=== PATIENT | male | born 1945 | race Caucasian/White ===

== ENCOUNTER → 2017-01-22 | Outpatient (CLI) | payer MEDICARE, OTHER ==
[2017-01-22 08:51] LABS: CH 31.5; CHCM 33.1; HCT 43.9 % (39.0-53.0); HDW 2.45; HGB 14.4 gm/dL (13.0-17.5); MCH 31.4 pg (25.0-35.0); MCHC 32.9 g/dL (31.0-37.0); MCV 95.4 fL (80.0-100.0); Mean Platelet Volume 6.7; RDW 13.2 % (11.5-15.5); WBC 6.4 k/uL (3.8-10.6)
[2017-01-22 09:09] LABS: ALT 46 U/L (21-72); AST 31 U/L (17-59); Alkaline Phosphatase 68 U/L (38-126); Anion Gap 11 mmol/L; Blood Urea Nitrogen 14 mg/dL (9-20); Calcium 9.8 mg/dL (8.4-10.2); Carbon Dioxide 27 mmol/L (22-30); Chloride 104 mmol/L (98-107); Cholesterol 139 mg/dL (<200); Glucose 150 mg/dL (74-99); HDL Cholesterol 34 mg/dL (40-60); Non-African American GFR(MDRD) >60 (>60 ml/min/1.73 sqM); Potassium 4.4 mmol/L (3.5-5.1); Sodium 142 mmol/L (137-145); Total Protein 7.6 g/dL (6.3-8.2); Triglycerides 179 mg/dL (<150)
--- NOTE | 2017-01-22 10:01 | XR ---
EXAMINATION TYPE: XR chest 2V DATE OF EXAM: 01/22/2017 8:38 AM COMPARISON: Prior chest x-ray 17 January 2016 HISTORY: Physical, asbestos exposure TECHNIQUE: Frontal and lateral views of the chest are obtained. FINDINGS: Patient is post median sternotomy. Pleural calcifications are again noted. Blunting of the right costophrenic angle is chronic. Cardiac mediastinal silhouette, pulmonary vascularity and bob are stable. No evident pneumothorax. No focal pneumonia. Prominent lung volumes suggest underlying CO PD. IMPRESSION: Stable exam. Chronic changes, asbestos related disease, postop change, correlate for emp hysema.
[2017-01-22 10:58] LABS: Hemoglobin A1C 6.9 % (4.2-6.1)
== END ==
LOC: LABWHC1 08:12
PROVIDERS: ATTEND Internal Medicine
DX: Z00.00 Encounter for general adult medical examination without abnormal findings (principal); I11.9 Hypertensive heart disease without heart failure; E78.2 Mixed hyperlipidemia; E11.9 Type 2 diabetes mellitus without complications; Z98.890 Other specified postprocedural states
CPT/HCPCS: 36415; 71020; 80053; 80061; 82043; 83036; 84439; 84443; 85027

== ENCOUNTER → 2017-10-18 | Outpatient (CLI) | payer MEDICARE, OTHER ==
[2017-10-18 10:27] LABS: HCT 43.4 % (39.0-53.0); HGB 14.5 gm/dL (13.0-17.5); MCH 31.2 pg (25.0-35.0); MCHC 33.4 g/dL (31.0-37.0); MCV 93.7 fL (80.0-100.0); Mean Platelet Volume 7.2; Platelet Count 213 k/uL (150-450); RBC 4.64 m/uL (4.30-5.90); RDW 13.5 % (11.5-15.5); WBC 5.9 k/uL (3.8-10.6)
[2017-10-18 10:29] LABS: Appearance,Urine Clear (Clear); Bilirubin,Urine Negative (Negative); Blood,Urine Negative (Negative); Color,Urine Yellow; Glucose,Urine (UA) Negative (Negative); Ketones,Urine Negative (Negative); Leukocyte Esterase,Urine Negative (Negative); Nitrite,Urine Negative (Negative); PH, Urine 6.5 (5.0-8.0); Protein,Urine Negative (Negative); Specific Gravity,Urine 1.012 (1.001-1.035); Urobilinogen,Urine <2.0 mg/dL (<2.0)
[2017-10-18 10:33] LABS: INR 1.1 (<1.2); Partial Thromboplastin Time 23.9 sec (22.0-30.0); Prothrombin Time 10.8 sec (9.0-12.0)
[2017-10-18 10:36] LABS: Blood Urea Nitrogen 12 mg/dL (9-20); Calcium 9.9 mg/dL (8.4-10.2); Carbon Dioxide 28 mmol/L (22-30); Chloride 103 mmol/L (98-107); Glucose 135 mg/dL (74-99); Potassium 4.9 mmol/L (3.5-5.1)
[2017-10-18 10:48] LABS: Anion Gap 10 mmol/L; Sodium 141 mmol/L (137-145)
--- NOTE | 2017-10-18 10:53 | XR ---
EXAMINATION TYPE: XR chest 2V DATE OF EXAM: 10/18/2017 COMPARISON: 01/22/2017 TECHNIQUE: PA and lateral views submitted. HISTORY: CABG FINDINGS: Bilateral pleural thickening or fusions are stable. Arthropathy of the shoulders and postoperative ch anges seen. No pneumothorax or overt failure. Suspect pleural plaques. Underlying COPD suspected. Ath erosclerotic change of the aorta. Nodular appearing density laterally in the right upper lobe is stab le. IMPRESSION: 1. Stable pleural-parenchymal changes correlate for asbestosis related disease.
== END | disposition home or self-care (01) ==
LOC: LABPAT 09:59
PROVIDERS: ATTEND Orthopaedic Surgery
DX: Z01.818 Encounter for other preprocedural examination (principal); J98.4 Other disorders of lung; E11.9 Type 2 diabetes mellitus without complications; I11.9 Hypertensive heart disease without heart failure; Z01.812 Encounter for preprocedural laboratory examination
CPT/HCPCS: 36415; 71046; 80048; 81003; 85027; 85610; 85730; 87070

== ENCOUNTER 2017-11-13 06:23 | Inpatient (IN) | payer MEDICARE, OTHER ==
--- NOTE | 2017-11-12 09:23 | HP ---
HISTORY AND PHYSICAL CHIEF COMPLAINT: Left knee pain. HISTORY OF PRESENT ILLNESS: The patient is a 72-year-old retired male who presents with progressive left knee pain secondary to osteoarthrosis, worsening over the past year. He has tried medications in addition to injections with only partial temporary relief. He notes significant medial pain with standing and walking. He is having night symptoms. PAST MEDICAL HISTORY: Significant for coronary artery disease, type 2 diabetes, benign hypertension, gastroesophageal reflux disease. PAST SURGICAL HISTORY: Significant for coronary artery bypass grafting, bilateral hernia repair. CURRENT MEDICATIONS: 1. Atenolol 88. 2. Atorvastatin. 3. Glipizide. 4. Lisinopril. 5. Metformin. 6. Omeprazole. ALLERGIES: He denies drug allergies. FAMILY HISTORY: Negative. SOCIAL HISTORY: Negative for current tobacco or alcohol use. REVIEW OF SYSTEMS: Sixteen point review of systems otherwise reviewed and is noncontributory. PHYSICAL EXAMINATION: On examination, the patient is approximately 5 foot 8, 215 pounds, of mesomorphic habitus. HEENT exam is nonfocal. Neck is supple. He has painless passive motion of his left hip. Straight leg raise is negative. Active motion left knee negative 10 to 115 degrees of flexion. He has a moderate effusion. He is tender about the medial joint line. Collaterals are stable, Gabe's negative, Bryce's is equivocal. He has genu varum alignment. His distal neurovascular appears intact in the left lower extremity. X-rays to include weightbearing PA , lateral and Merchant views of the left knee obtained in the office show severe tricompartmental osteoarthrosis. IMPRESSION: 1. Left knee severe tricompartmental osteoarthrosis. 2. History of coronary artery disease, status post bypass grafting. 3. History of benign hypertension. 4. History of type 2 diabetes. RECOMMENDATIONS: I talked to the patient at length regarding his treatment options. At this point, he is significantly limited because of pain related to his osteoarthrosis despite conservative measures. After thorough discussion of his options, he opts to proceed with surgery. We will plan to proceed with left total knee arthroplasty. Risks and benefits were discussed at length in layman's terms. We will likely institute DVT prophylaxis postoperatively. The patient underwent preoperative cardiac evaluation by Dr. Huddleston. MMTAMMY / GABRIELAN: [id number] /
[~2017-11-13 06:23] MED LIST: ACETAMINOPHEN TAB 500 MG TAB PO ONE; HYDROmorphone 0.5 MG/0.5 ML SYRINGE IVP PRN; LIDOCAINE 1% 20 ML VIAL (10MG/ML) FOR IV START INTRADERMA PRN; MELOXICAM 7.5 MG TAB PO ONE; ONDANSETRON 4 MG/2 ML VIAL IVP ONE; TRANEXAMIC ACID 1,000 MG in SODIUM CHLORIDE 0.9% 50 ML IVPB ONE; ceFAZolin IN SWFI 2 GM/20 ML SYRINGE IVP ONE
[2017-11-13] MEDS: LACTATED RINGERS 1,000 ML IV SCH (07:16)
[2017-11-13 07:19] LABS: Glucose,Whole Blood 129 mg/dL (75-99)
[2017-11-13] MEDS ORDERED: MIDAZOLAM 2 MG/2 ML VIAL IV ONE (07:29)
[2017-11-13] MEDS ORDERED: METOPROLOL TARTRATE 5 MG/5 ML VIAL IVP ONE (07:59)
[2017-11-13] MEDS ORDERED: TRANEXAMIC ACID 1,000 MG/10 ML VIAL ONE (08:06)
[2017-11-13] MEDS ORDERED: fentaNYL (PF) 50 MCG/ML 2 ML AMP ONE (08:06)
[2017-11-13] MEDS ORDERED: SODIUM CHLORIDE 0.9% 100 ML BAG ONE (08:06)
[2017-11-13] MEDS ORDERED: PHENYLEPHRINE-0.9% NACL SYG 1 MG/10 ML SYRINGE ONE (08:06)
[2017-11-13] MEDS ORDERED: PROPOFOL 10 MG/ML 20 ML VIAL IV ONE (08:06)
[2017-11-13] MEDS ORDERED: ePHEDrine SULFATE/0.9% NACL/PF 50 MG/5 ML SYRINGE IV ONE (08:06)
[2017-11-13] MEDS ORDERED: MIDAZOLAM 2 MG/2 ML VIAL ONE (08:06)
[2017-11-13] MEDS ORDERED: ceFAZolin 1,000 MG in SODIUM CHLORIDE 0.9% 1,000 ML IRRIGATION ONE ×2 (08:45→09:35)
[2017-11-13] MEDS ORDERED: ROPIVACAINE 246.25 MG, EPINEPHrine 0.5 MG, KETOROLAC 30 MG, cloNIDine HCL/PF 80 MCG, WA... MISCELLANE ONE ×5 (08:48)
[2017-11-13] MEDS ORDERED: LACTATED RINGERS 1,000 ML IV ONE (09:36)
[2017-11-13] MEDS ORDERED: ONDANSETRON 4 MG/2 ML VIAL IVP PRN (10:06)
[2017-11-13] MEDS ORDERED: HYDROmorphone 4 MG/ML 1 ML SYRINGE IVP PRN (10:06)
[2017-11-13] MEDS ORDERED: NALOXONE 0.4 MG/ML 1 ML VIAL IV PRN (10:06)
[2017-11-13] MEDS ORDERED: MAGNESIUM HYDROXIDE 2,400 MG/10 ML CUP PO PRN (10:06)
[2017-11-13] MEDS ORDERED: ACETAMINOPHEN TAB 325 MG TAB PO PRN (10:06)
--- NOTE | 2017-11-13 10:36 | P.OP ---
Date of Procedure: 11/13/17 Preoperative Diagnosis: Left knee severe tricompartmental osteoarthrosis Postoperative Diagnosis: Same Procedure(s) Performed: Left total knee [id number]-islueforv stabilized Implants: Depuy Attune size 7 posterior stabilized cemented femoral component, size 6 cemented tibial component, 10 mm articular surface, 38 mm cemented patellar component. This is a posterior stabilized implant. Anesthesia: regional, local, spinal Surgeon: Jaime Gage Table Filler #1: Micah Rodriguez Estimated Blood Loss (ml): 100 Pathology: other (Bone fragments) Condition: stable Disposition: PACU Indications for Procedure: The patient's a 72-year-old male presents with progressive left knee pain secondary to osteoarthrosis despite conservative measures. A discussion of the risks and benefits of operative intervention versus continued conservative measures was made with the patient. He opted to proceed with surgery. Operative risks to include infection, neurovascular injury, development of blood clots, possible component loosening, possible component failure need for subsequent procedures was discussed. Informed consent was obtained. Operative Findings: As below Description of Procedure: The patient was brought to the operating room, and after induction of spinal anesthesia the left lower extremity was prepped and draped in a normal fashion. The tourniquet was inflated to 270 mmHg. A longitudinal incision extending 3 finger breaths above the superior pole of the patella extending to the medial aspect of the tibial tubercle was then made. The skin and subcutaneous tissues were divided sharply. Electrocautery was used for hemostasis. A medial parapatellar arthrotomy was performed. The medial soft tissues to include the superficial and deep portions of the medial collateral ligament as well as the medial hamstring tendons were elevated subperiosteally. The posterior medial capsule was also elevated. The proximal medial tibia osteophytes were removed. The patella was everted. A portion of the retropatellar fat pad was excised sharply. The knee was then flexed. The anterior cruciate ligament was already ruptured. A starting hole was made in the distal femur 1 and 2 to the posterior cruciate ligament origin. An intramedullary femoral guide was inserted planning on 5 valgus distal cut with 9 mm distal resection. The cutting block was pinned in place. The distal cut was then made. The posterior referencing sizing guide was utilized. I felt size 7 was most appropriate. 3 of external rotation was built into the system and verified off the trans-epicondylar axis and the posterior condyles. The cutting block was pinned in place. The anterior, posterior, and chamfer cuts were then made. The bone fragments were then removed. The box cutting guide was placed. A reciprocating saw was used remove the box portion. The bone was removed in one fragment. The trial components placed. It was fully seated. There was good anterior to posterior and medial to lateral fit. The distal peg holes were drilled. The trial component was then removed. Attention was then paid towards preparing the proximal tibia. An extra medullary guide was utilized in line with the tibial shaft and second metatarsal distally. I planned on 3 posterior slope. I planned on 2 mm resection from the medial compartment. The cutting guide was pinned in place. The proximal tibial cut was then made. The bone was removed in one fragment. The tibia sized most appropriate size 6. The trial femoral and tibial components were placed along with a 10 mm articular surface. I did piecrust portion of the medial collateral ligament to help with balancing. I was able to obtain full flexion and extension with good stability with varus and valgus stress. After several flexion and extension cycles, the tibial rotation was marked with electrocautery in line with the medial one third of the tibial tubercle. A patella reamer was utilized taking down to 14 mm of bone stock. A good flush cut was made. The patella sized most appropriately 38 mm. The peg holes were drilled. The trial components placed. The knee was taken through range of motion. I had good patellofemoral tracking with no hands technique. The trial components were then removed. The remnants of the medial lateral menisci were excised at the capsular junction with electrocautery. The posterior osteophytes of the distal femur were carefully removed with a curved osteotome. The tibia was prepared in the appropriate rotation with appropriate drill and keel punch. The flexion and extension gaps were checked and felt to be symmetric. The posterior soft tissues were injected with ropivacaine. Additional drill holes were made in the proximal tibia to facilitate cement interdigitation. He did have a large cystic area in the central portion of the proximal tibia. The bony surfaces were prepared with pulsatile lavage and dried. The tibial component cemented in placed and was fully seated. Excess cement was removed. The femoral component cemented place and was fully seated. Excess cement was removed. The trial 10 mm articular surface was placed and the knee was put in full extension. The patella component cemented in placed and was fully seated. Excess cement was removed. After the cement had sufficiently hardened, the knee was again taken through range of motion. Again there was good stability in flexion and extension with varus and valgus stress. The trial articular surface was removed and the final 10 mm articular surface placed. This was fully seated. Care was taken to avoid any soft tissue interposition. Pulsatile lavage was again utilized. The tourniquet was previously deflated with approximately 40 minutes total tourniquet time. Final hemostasis was obtained with electrocautery. The medial parapatellar arthrotomy was closed with #2 Ethibond suture. There is minimal drainage is this point therefore a drain was not placed. The subcu tissues were reapproximated interrupted 2-0 Vicryl sutures. The skin was reapproximated with 3-0 subcuticular strata fix suture. Skin tape and adhesive was applied. A sterile dressing was applied. The patient was awoken from sedation and transferred to recovery room in good condition. Blood loss was estimated at 100 mL. No complications were incurred. Sponge and needle counts were correct at the end the case.
[2017-11-13 10:52] LABS: Glucose,Whole Blood 136 mg/dL (75-99)
--- NOTE | 2017-11-13 11:01 | XR ---
EXAMINATION TYPE: XR knee limited LT DATE OF EXAM: 11/13/2017 CLINICAL HISTORY: pain TECHNIQUE: Three views of the left knee are obtained. COMPARISON: None. FINDINGS: There is no acute fracture/dislocation. The tri-compartment joint spaces appear within no rmal limits. The overlying soft tissue appears unremarkable. IMPRESSION: There is no acute fracture or dislocation ICD 10 NO FRACTURE, INITIAL EVALUATION
[2017-11-13] MEDS ORDERED: ROPIVACAINE 1,100 MG, SODIUM CHLORIDE 0.9% 330 ML MISCELLANE PRN ×2 (11:05)
[2017-11-13] MEDS: ceFAZolin IN SWFI 2 GM/20 ML SYRINGE IVP SCH (16:20)
--- NOTE | 2017-11-13 16:21 | P.ONQ ---
Anesthesiology Proc Note - PNB - Peripheral Nerve Block Performed Left Adductor Canal Infusion Indication: Acute Post-Operative Pain, Dx/Pain Location (Left knee) Specifically requested for management of pain by : Jaime Gage Sedation Type: Sedate with meaningful contact maintained Preparation: Sterile Prep Position: Supine Catheter: Indwelling Needle Types: Other (see comment) (Pajunk) Needle Size: 100mm (4") Needle Gauge: 21 Injectate: 0.5% Ropivacaine (see comment for volume) (30 cc) Blood Aspirated: No Pain Paresthesia on Injection Noted: No Resistance on Injection: Normal Events: Uneventful and Well Tolerated
[2017-11-13] MEDS: traMADol 50 MG TAB PO SCH ×3 (16:26→23:12)
[2017-11-13 16:57] VITALS: BMI 31.9
[2017-11-13 17:17] LABS: Glucose,Whole Blood 95 mg/dL (75-99)
[2017-11-13] MEDS: metFORMIN 500 MG TAB PO SCH (18:55)
[2017-11-13] MEDS ORDERED: ENOXAPARIN 30 MG/0.3 ML SYRINGE SQ SCH (21:00)
[2017-11-13] MEDS ORDERED: metFORMIN 500 MG TAB PO SCH (21:00)
[2017-11-13] MEDS: ATORVASTATIN 80 MG TAB PO SCH (21:07)
[2017-11-13] MEDS: HYDROmorphone 4 MG/ML 1 ML SYRINGE IVP PRN (21:07)
[2017-11-13] MEDS: ATENOLOL 25 MG TAB PO SCH (21:07)
[2017-11-13] MEDS: SENNOSIDES-DOCUSATE SODIUM 1 EACH TAB PO SCH (21:09)
[2017-11-13 21:24] LABS: Glucose,Whole Blood 161 mg/dL (75-99)
[2017-11-13] MEDS: INSULIN ASPART 100 UNIT/ML 1 ML 10 ML VIAL SQ SCH (21:25)
[2017-11-14] MEDS: ceFAZolin IN SWFI 2 GM/20 ML SYRINGE IVP SCH (00:04)
[2017-11-14] MEDS: LACTATED RINGERS 1,000 ML IV SCH ×2 (04:18→21:01)
[2017-11-14] MEDS: HYDROmorphone 4 MG/ML 1 ML SYRINGE IVP PRN (05:42)
[2017-11-14 08:36] LABS: Basophils % (A) 0 %; Eosinophils # (A) 0.1 k/uL (0-0.7); Eosinophils % (A) 1 %; HCT 32.7 % (39.0-53.0); Lymphocytes # (A) 1.1 k/uL (1.0-4.8); Lymphocytes % (A) 14 %; MCH 30.1 pg (25.0-35.0); MCHC 32.2 g/dL (31.0-37.0); MCV 93.6 fL (80.0-100.0); Mean Platelet Volume 7.1; Monocytes # (A) 0.5 k/uL (0-1.0); Monocytes % (A) 7 %; Neutrophils # (A) 6.4 k/uL (1.3-7.7); Neutrophils % (A) 77 %; Platelet Count 190 k/uL (150-450); RDW 12.3 % (11.5-15.5); WBC 8.3 k/uL (3.8-10.6)
[2017-11-14 08:38] LABS: HGB 10.5 gm/dL (13.0-17.5)
[2017-11-14] MEDS: PANTOPRAZOLE 40 MG TABLET PO SCH (08:43)
[2017-11-14] MEDS: RIVAROXABAN 10 MG TAB PO SCH (11:08)
[2017-11-14] MEDS: LISINOPRIL 5 MG TAB PO SCH (11:08)
[2017-11-14] MEDS: ATENOLOL 25 MG TAB PO SCH ×3 (11:08→21:57)
[2017-11-14] MEDS: FAMOTIDINE 20 MG TAB PO SCH (11:09)
[2017-11-14] MEDS: glipiZIDE 5 MG TAB PO SCH (11:09)
[2017-11-14] MEDS: metFORMIN 500 MG TAB PO SCH ×2 (11:10→17:42)
[2017-11-14] MEDS: INSULIN ASPART 100 UNIT/ML 1 ML 10 ML VIAL SQ SCH ×4 (11:10→21:00)
[2017-11-14] MEDS: traMADol 50 MG TAB PO SCH ×5 (11:11→21:56)
--- NOTE | 2017-11-14 12:27 | P.PN ---
Subjective Progress Note Date: 11/14/17 Principal diagnosis: Status post left total knee arthroplasty Patient is seen today resting in his hospital chair, he appears comfortable. Initially ambulated well with therapy yesterday. He noted some nausea today, this has improved. Patient denies any chest pain, lightheadedness, shortness of breath, fever chills. Objective - Vital Signs Vital signs: Vital Signs Temp 99.5 F 11/14/17 07:00 Pulse 82 11/14/17 07:00 Resp 16 11/14/17 09:00 BP 135/51 11/14/17 07:00 Pulse Ox 95 11/14/17 07:00 Intake & Output 11/13/17 11/14/17 11/14/17 18:59 06:59 18:59 Intake Total 3052 550 Output Total 260 900 200 Balance 2792 -350 -200 Weight 95.254 kg Intake: IV 2752 Intake, IV Titration 550 Amount Lactated Ringers 1,000 ml 550 @ 50 mls/hr IV .Q20H [facility] Rx#:[id number] Oral 300 Output: Urine 160 900 200 Uretheral (Gaming) 200 Estimated Blood Loss 100 Other: Voiding Method Indwelling Catheter Indwelling Catheter Indwelling Catheter - Exam Left lower extremity: Incision is clean, dry, and intact. The prineo tape is in good condition. There is minimal soft tissue swelling and ecchymosis surrounding the medial and lateral aspects of the incision. Calf is soft, no tenderness with palpation. Plantar flexion, dorsiflexion, EHL, FHL are intact. Sensory exam to light touch throughout the extremity is intact, dorsal pedis pulses 2+. - Labs CBC & Chem 7: 11/14/17 07:30 Labs: Abnormal Lab Results - Last 24 Hours (Table) 11/13/17 11/14/17 Range/Units 21:21 07:30 RBC 3.50 L (4.30-5.90) m/uL Hgb 10.5 L D (13.0-17.5) gm/dL Hct 32.7 L (39.0-53.0) % POC Glucose (mg/dL) 161 H (75-99) mg/dL Assessment and Plan Plan: Assessment: 1. Postop day 1 status post left total knee arthroplasty Plan: 1. Pain control, continue use of low-dose oral medication 2. Continue work with physical therapy and use of CPM 3. Daily dressing changes/ice and elevate 4. GI and DVT prophylaxis, continue some Xarelto 10 mg 5. Medical recommendations 6. Discharge planning: Patient will likely be discharged home tomorrow Time with Patient: Less than 30
[2017-11-14 12:52] LABS: Glucose,Whole Blood 224 mg/dL (75-99)
[2017-11-14] MEDS ORDERED: HYDROmorphone 2 MG TAB PO PRN ×2 (15:22→15:23)
--- NOTE | 2017-11-14 15:56 | P.PN ---
Subjective Progress Note Date: 11/14/17 Principal diagnosis: this is dictation on the progress note by Dr. [facility] the PCP asked me to see the patient for him today as he had urgent to get out of town. Patient is comfortable at the time he is having exercise on his left knee and he has a status post left total knee arthroplasty. Patient also has history of diabetes mellitus type II on oral hypoglycemic agent and supplemental regular insulin for scale as well, patient had no symptoms of hypoglycemia or hyper glycemia. He has one episode of increased blood sugar due to eating capacity with a chocolate. Otherwise his blood sugar is controlled. Patient complaint this morning with nausea currently result. Orthopedic surgeon planning for him for discharge tomorrow, Dr. Bills will be in town tomorrow. New Patient denied any symptoms GI or or cardiovascular or respiratory or headache or blurred vision. His vital signs today indicating temperature 98.5 and pulse 69 regular and respiratory rate 16 and blood pressure 137/69 with the mean blood pressure 91. Pulse ox 95% on room air. On exam: HEENT negative. Neck was supple no JVD no thyromegaly no lymphadenopathy. Chest is clear to auscultation and percussion no wheezes no rhonchi's. The heart was regular sinus rhythm no arrhythmia. Abdomen is soft positive bowel sounds no tenderness in the 4 quadrants. Extremities he had recent status post right total knee arthroplasty and he is walking and he has the machine helping him as well and he felt fine with pain controlled. Pulses on the lower extremities intact bilateral and symmetrical and no evidence of DVT and no edema of the lower extremities. Assessment: #1 status post total knee arthroplasty. #2 diabetes mellitus type 2 on oral hypoglycemic agent. #3 history of GERD disease on famotidine #4 he is on anticoagulant with Xarelto receiving 10 mg daily. #5 hypertension is controlled by beta blockers. Plan: We'll continue the current treatment and Dr. Bills will be seeing him tomorrow and further follow-up depends on patient condition and he will be following with Dr. Dexter Bills. Objective - Vital Signs Vital signs: Vital Signs Temp 98.5 F 11/14/17 14:17 Pulse 69 11/14/17 14:17 Resp 16 11/14/17 14:17 BP 137/69 11/14/17 14:17 Pulse Ox 95 11/14/17 14:17 Intake & Output 11/13/17 11/14/17 11/14/17 18:59 06:59 18:59 Intake Total 3052 550 120 Output Total 260 900 200 Balance 2792 -350 -80 Weight 95.254 kg Intake: IV 2752 Intake, IV Titration 550 Amount Lactated Ringers 1,000 ml 550 @ 50 mls/hr IV .Q20H [facility] Rx#:[id number] Oral 300 120 Output: Urine 160 900 200 Uretheral (Gaming) 200 Estimated Blood Loss 100 Other: Voiding Method Indwelling Catheter Indwelling Catheter Indwelling Catheter # Voids 1 - Labs CBC & Chem 7: 11/14/17 07:30 Labs: Abnormal Lab Results - Last 24 Hours (Table) 11/13/17 11/14/17 11/14/17 Range/Units 21:21 07:30 12:49 RBC 3.50 L (4.30-5.90) m/uL Hgb 10.5 L D (13.0-17.5) gm/dL Hct 32.7 L (39.0-53.0) % POC Glucose (mg/dL) 161 H 224 H (75-99) mg/dL
[2017-11-14 17:19] LABS: Glucose,Whole Blood 177 mg/dL (75-99)
[2017-11-14 19:43] LABS: Glucose,Whole Blood 176 mg/dL (75-99)
[2017-11-14 20:47] LABS: Hemoglobin A1C 6.7 % (4.0-6.0)
[2017-11-14] MEDS: ATORVASTATIN 80 MG TAB PO SCH ×2 (21:00→21:57)
[2017-11-14] MEDS: SENNOSIDES-DOCUSATE SODIUM 1 EACH TAB PO SCH ×2 (21:00→21:56)
[2017-11-15] MEDS: traMADol 50 MG TAB PO SCH ×2 (07:12→12:03)
[2017-11-15] MEDS: ATENOLOL 25 MG TAB PO SCH (07:13)
[2017-11-15] MEDS: LISINOPRIL 5 MG TAB PO SCH (07:14)
[2017-11-15] MEDS: PANTOPRAZOLE 40 MG TABLET PO SCH (07:14)
[2017-11-15] MEDS: FAMOTIDINE 20 MG TAB PO SCH (07:14)
[2017-11-15] MEDS: glipiZIDE 5 MG TAB PO SCH (07:14)
[2017-11-15] MEDS: RIVAROXABAN 10 MG TAB PO SCH (07:14)
[2017-11-15] MEDS: metFORMIN 500 MG TAB PO SCH (07:15)
[2017-11-15] MEDS: LACTATED RINGERS 1,000 ML IV SCH (07:15)
[2017-11-15 07:33] LABS: Glucose,Whole Blood 167 mg/dL (75-99)
[2017-11-15] MEDS: INSULIN ASPART 100 UNIT/ML 1 ML 10 ML VIAL SQ SCH ×2 (08:02→12:02)
[2017-11-15 08:17] VITALS: BP 172/81; PULSE 79; RESP 17; TEMP 98.1
--- NOTE | 2017-11-15 11:27 | P.PN ---
Subjective Progress Note Date: 11/15/17 Principal diagnosis: Status post left total knee arthroplasty Patient is seen today resting in his hospital chair, he appears comfortable. Patient denies any chest pain, lightheadedness, shortness of breath, fever chills. Objective - Vital Signs Vital signs: Vital Signs Temp 98.1 F 11/15/17 07:10 Pulse 79 11/15/17 07:10 Resp 17 11/15/17 07:10 BP 172/81 11/15/17 07:10 Pulse Ox 94 L 11/15/17 07:10 Intake & Output 11/14/17 11/15/17 11/15/17 18:59 06:59 18:59 Intake Total 120 0 Output Total 200 Balance -80 0 Intake: Intake, IV Titration 0 Amount Lactated Ringers 1,000 ml 0 @ 50 mls/hr IV .Q20H COURT Rx#:[id number] Oral 120 Output: Urine 200 Uretheral (Gaming) 200 Other: Voiding Method Indwelling Catheter Toilet Toilet # Voids 1 - Exam Left lower extremity: Incision is clean, dry, and intact. The prineo tape is in good condition. There is minimal soft tissue swelling and ecchymosis surrounding the medial and lateral aspects of the incision. Calf is soft, no tenderness with palpation. Plantar flexion, dorsiflexion, EHL, FHL are intact. Sensory exam to light touch throughout the extremity is intact, dorsal pedis pulses 2+. - Labs CBC & Chem 7: 11/14/17 07:30 Labs: Abnormal Lab Results - Last 24 Hours (Table) 11/14/17 11/14/17 11/14/17 Range/Units 07:30 12:49 17:13 POC Glucose (mg/dL) 224 H 177 H (75-99) mg/dL Hemoglobin A1c 6.7 H (4.0-6.0) % 11/14/17 11/15/17 Range/Units 19:26 07:22 POC Glucose (mg/dL) 176 H 167 H (75-99) mg/dL Hemoglobin A1c (4.0-6.0) % Assessment and Plan Plan: Assessment: 1. Postop day #2 status post left total knee arthroplasty Plan: 1. Pain control, continue use of low-dose oral medication 2. Continue work with physical therapy and use of CPM 3. Daily dressing changes/ice and elevate 4. GI and DVT prophylaxis, continue some Xarelto 10 mg 5. Medical recommendations 6. Discharge planning: Patient will be discharged home today
--- NOTE | 2017-11-15 11:31 | P.DS ---
Providers Date of admission: 11/13/17 06:23 Expected date of discharge: 11/15/17 Attending physician: Jaime Gage Consults: 11/13/17 10:06 Consult Physician Routine Consulting Provider: Dexter Bills Reason/Comments: Medical management Do you want consulting provider notified?: Yes Primary care physician: Stated None Hospital Course: Date of admission: 11/13/2017 Date of discharge: 11/15/2017 Admission diagnosis: Status post left total knee arthroplasty Discharge diagnosis: Same Attending physician: Dr. Gage Surgical procedures: Left total knee arthroplasty Brief history: Patient is a 72-year-old male with a history of progressive primary left knee osteoarthritis. At this point patient has failed conservative treatment measures and has opted to proceed with a elective left total knee arthroplasty. Hospital course: Details of patient's surgery can be found in operative report. Patient tolerated the procedure well and was subsequently transported to orthopedic floor. Patient's orthopeidc and medical care was provided daily. Patient had daily laboratory tests performed for evaluation of overall blood counts. Patient had daily physical therapy to include strengthening range of motion as well as education with walker ambulation. Patient had daily CPM usage as part of their physical therapy program. Patient was treated with Xarelto for their postoperative DVT prophylaxis during their inpatient stay. Patient was noted to have a relatively uneventful postoperative course. Patient reported satisfactory pain control with oral pain medications by postoperative day 0. Patient showed satisfactory progress with physical therapy. Patient moved steadily through the program and had no difficulty meeting the goals by postoperative day 2. Given patient's otherwise satisfactory course and having met physical therapy goals, plan is to discharge patient home on postoperative day 2. Discharge condition/disposition: Patient will be discharged home in stable condition. Discharge medications: Instructions are given on resumption of patient's normal daily medications per primary care recommendation, in addition patient will be prescribed tramadol 50 mg, Colace 100 mg, Xarelto 10 mg. Discharge instructions: 1. Wound care and infection precautions, keep incision dry and covered while showering, no lotions, creams, moisturizers. No soaking, tubs, pools, hottubs. Do not scrub over the incision. 2. Weight-bear as tolerated with walker / cane until follow-up. 3. Ice and elevate when necessary. Do not exceed 20 minutes per hour with ice pack. 4. Utilize compression sleeve until seen at first follow up appointment. 5. Visiting nursing care. 6. Home physical therapy including home CPM. 7. Pain meds and anticoagulants per prescription. 8. Pain medication has potential to cause constipation. Increase oral fluid and fiber intake. Contact primary care provider if you have not had a bowel movement within 48 hours after discharge 9. No anti-inflammatory medication until discussed at first post operative visit, this including Motrin, Aleve, Mobic, Diclofenac. 10. Follow up in office at 2 weeks postop with Pa Rodriguez PA-C 11. Follow up with your primary care doctor 7-10 days after discharge. 12. Contact [facility] with any questions, . Procedures: Left total knee arthroplasty Patient Condition at Discharge: Good Plan - Discharge Summary Discharge Rx Participant: Yes New Discharge Prescriptions: New Rivaroxaban [Xarelto] 10 mg PO DAILY #12 tab Docusate [Colace] 100 mg PO DAILY #30 capsule traMADol HCl [Ultram] 50 mg PO Q6H PRN #40 tab PRN Reason: Pain No Action Atenolol [Tenormin] 25 mg PO BID glipiZIDE [Glipizide] 5 mg PO DAILY metFORMIN HCL [metFORMIN HCL] 1,000 mg PO BID Omeprazole [Omeprazole] 20 mg PO DAILY Atorvastatin [Lipitor] 80 mg PO HS Lisinopril [Zestril] 5 mg PO DAILY Aspirin [Adult Low Dose Aspirin EC] 81 mg PO DAILY Discharge Medication List Atenolol [Tenormin] 25 mg PO BID 10/15/14 [History] Atorvastatin [Lipitor] 80 mg PO HS 10/15/14 [History] Omeprazole [Omeprazole] 20 mg PO DAILY 10/15/14 [History] glipiZIDE [Glipizide] 5 mg PO DAILY 10/15/14 [History] metFORMIN HCL [metFORMIN HCL] 1,000 mg PO BID 10/15/14 [History] Aspirin [Adult Low Dose Aspirin EC] 81 mg PO DAILY 11/06/17 [History] Lisinopril [Zestril] 5 mg PO DAILY 11/06/17 [History] Rivaroxaban [Xarelto] 10 mg PO DAILY #12 tab 11/13/17 [Rx] Docusate [Colace] 100 mg PO DAILY #30 capsule 11/15/17 [Rx] traMADol HCl [Ultram] 50 mg PO Q6H PRN #40 tab 11/15/17 [Rx] Follow up Appointment(s)/Referral(s): [facility], [NON-STAFF] - Micah Rodriguez PAC [PHYSICIAN WELFARE MANAGER] - 2 Weeks Activity/Diet/Wound Care/Special Instructions: Orthopedic Discharge Instructions: 1. Wound care and infection precautions, keep incision dry and covered while showering, no lotions, creams, moisturizers. No soaking, pools, hot tubs. Do not scrub over incision. 2. Weight-bear as tolerated with walker / cane until follow-up. 3. Ice and elevate when necessary. Do not exceed 20 minutes per hour with ice pack. 4. Utilize compression sleeve until seen at first follow up appointment. 5. Visiting nursing care. 6. Home physical therapy including home CPM. 7. Pain meds and anticoagulants per prescription. 8. Pain medication has potential to cause constipation. Increase oral fluid and fiber intake. Contact primary care provider if you have not had a bowel movement within 48 hours after discharge. 9. No anti-inflammatory medication until discussed at first post operative visit, this including Motrin, Aleve, Mobic, Diclofenac. 10. Follow up in office at 2 weeks postop with Pa Rodriguez PA-C 11. Follow up with your primary care doctor 7-10 days after discharge. 12. Contact [facility] with any questions, . Discharge Disposition: HOME WITH HOME HEALTH SERVICES
[2017-11-15 12:00] LABS: Glucose,Whole Blood 114 mg/dL (75-99)
--- NOTE | 2017-11-15 15:18 | PN ---
PROGRESS NOTE DATE OF SERVICE: 11/15/2017 This is a 72-year-old white male who had a left total knee arthroplasty for advanced degenerative arthritis on 11/13/[address] Gage. Patient was seen by me in consultation for postoperative medical management. Patient has been placed back on his previous home medications and his diabetes was being controlled with NovoLog sliding scale. Patient's pain was controlled with IV Dilaudid on a p.r.n. basis. Patient's vital signs remain stable and he has no acute cardial or respiratory problems and patient was seen by Dr. Patel on 11/14/2017 as he was covering me when I was out of town. Today, patient seems to be doing well and his vital signs are stable and CBC looked unremarkable and Dr. Gage is planning to discharge him home today and I have reviewed all the discharge medications with the patient and also with his . He was advised to follow Dr. Gage' instructions with regards to the physical therapy and also for followup with me. Patient will be seen in my office for followup in 3-4 weeks after he heals well from surgery. MMODL / IJN: [id number] /
--- NOTE | 2017-11-15 15:54 | CONS ---
CONSULTATION DATE OF SERVICE: 11/13/2017. ATTENDING PHYSICIAN: Dr. Gage. HISTORY OF PRESENT ILLNESS: This is a 72-year-old white male who was having progressive left knee pain with severe osteoarthritis and the patient was recommended to have a left total knee arthroplasty by Dr. Gage and the patient had surgery done this morning and I have been asked to see the patient for postoperative medical management. PAST MEDICAL HISTORY: The patient's medical history reveals that the patient has longstanding history of coronary artery disease, hypertensive cardiovascular disease and diabetes mellitus, hyperlipidemia, and he has had coronary artery bypass graft in the past. CURRENT MEDICATION: Include atenolol 25 mg p.o. b.i.d., Lipitor 80 mg p.o. daily. Glipizide 5 mg p.o. daily. Metformin 1000 mg p.o. b.i.d., lisinopril 5 mg daily, omeprazole 20 mg daily and Xarelto 10 mg daily, aspirin 81 mg p.o. daily. The patient has had left knee arthritis for a long time and he has been tried on the conservative options and because this failed and the patient was getting progressively worse he underwent this surgery. ALLERGIES: He has no known drug allergies. SOCIAL HISTORY: He does not smoke and he drinks alcohol occasionally. FAMILY HISTORY: Reveals that his mother of cancer of the pancreas. There is some family history of diabetes in the past. REVIEW OF SYSTEMS: The patient denies any headaches. Appetite has been good. Bowels sounds regular. He has no chest pain. He is status post left total knee arthroplasty. Pain is being controlled with epidural and IV medications. Patient seems to be in good control. He is alert and oriented x3. PHYSICAL EXAMINATION: Reveals a 72-year-old white male, well nourished and well developed. He is alert and oriented. He is in no acute distress. There is no jaundice. There is no generalized lymphadenopathy. No petechia or bruises. Pulse is 72 per minute, regular. Blood pressure 130/70. Examination of the ENT negative. Neck is supple. There is no jugular venous distention. There is no goiter and no carotid bruit. Heart is in sinus rhythm. LUNGS: Clear to auscultation and percussion. ABDOMEN: Soft and nontender. There is no mass palpable. Examination of the lower extremities reveal no pitting edema. There is no jaundice and neurologic examination does not reveal any localizing signs. IMPRESSION: 1. Severe osteoarthritis left knee, status post total left knee arthroplasty. 2. Hypertensive cardiovascular disease. 3. Coronary artery disease status post coronary artery bypass graft. 4. Diabetes mellitus. 5. Gastroesophageal reflux disease. Patient postoperatively seemed to be recovering fairly well and his vital signs were stable. Heart is in sinus rhythm and there is no acute cardiorespiratory problems. For his diabetes, we will place him on an insulin sliding scale. Also he will be placed back on his previous home medications. Prognosis guarded. Thank you for asking me to see this patient in consultation. We will follow the patient with you for his medical problems. MMODL / IJN: [id number] /
== END 2017-11-15 14:15 | disposition home health service (06) | DRG 470 ==
LOC: 2ORMAIN 06:23 → 3SUR 13:53
PROVIDERS: ADMIT Orthopaedic Surgery; ATTEND Orthopaedic Surgery
PROC: 0SRD0J9 Replacement of Left Knee Joint with Synthetic Substitute, Cemented, Open Approach (ICD-10-PCS; principal; 2017-11-13 08:00)
DX: M17.12 Unilateral primary osteoarthritis, left knee (principal); E11.9 Type 2 diabetes mellitus without complications; R06.83 Snoring; I11.9 Hypertensive heart disease without heart failure; I25.10 Atherosclerotic heart disease of native coronary artery without angina pectoris; K21.9 Gastro-esophageal reflux disease without esophagitis; E78.2 Mixed hyperlipidemia; I25.2 Old myocardial infarction; Z79.82 Long term (current) use of aspirin; Z79.84 Long term (current) use of oral hypoglycemic drugs; Z79.899 Other long term (current) drug therapy; Z95.1 Presence of aortocoronary bypass graft; Z82.49 Family history of ischemic heart disease and other diseases of the circulatory system
CPT/HCPCS: 83036; 85025; 88300

== ENCOUNTER → 2018-05-27 | Outpatient (CLI) | payer MEDICARE, OTHER ==
[2018-05-27 10:49] LABS: HCT 37.8 % (39.0-53.0); HGB 13.1 gm/dL (13.0-17.5); MCHC 34.6 g/dL (31.0-37.0); MCV 89.5 fL (80.0-100.0); Mean Platelet Volume 6.4; Platelet Count 201 k/uL (150-450); RBC 4.23 m/uL (4.30-5.90); RDW 14.1 % (11.5-15.5); WBC 5.8 k/uL (3.8-10.6)
[2018-05-27 11:06] LABS: ALT 40 U/L (21-72); AST 30 U/L (17-59); Albumin 3.9 g/dL (3.5-5.0); Alkaline Phosphatase 60 U/L (38-126); Anion Gap 7 mmol/L; Blood Urea Nitrogen 16 mg/dL (9-20); Calcium 9.7 mg/dL (8.4-10.2); Carbon Dioxide 29 mmol/L (22-30); Chloride 103 mmol/L (98-107); Cholesterol 135 mg/dL (<200); Glucose 124 mg/dL (74-99); HDL Cholesterol 30 mg/dL (40-60); LDL Cholesterol,Calculated 71 mg/dL (0-99); Potassium 4.4 mmol/L (3.5-5.1); Sodium 139 mmol/L (137-145); Total Bilirubin 0.9 mg/dL (0.2-1.3); Total Protein 6.4 g/dL (6.3-8.2); Triglycerides 168 mg/dL (<150)
[2018-05-27 11:14] LABS: T4, Free (Free Thyroxine) 0.94 ng/dL (0.78-2.19)
--- NOTE | 2018-05-27 13:36 | XR ---
EXAMINATION TYPE: XR chest 2V DATE OF EXAM: 05/27/2018 COMPARISON: Prior chest 10/18/2017 HISTORY: Wellness check, history of asbestos exposure, abnormal chest x-ray TECHNIQUE: Frontal and lateral views of the chest are obtained. FINDINGS: There is no significant change. Postop changes, calcified pleural plaques are again noted, there is abnormal thickening. Cardiac mediastinal silhouette, pulmonary vascularity and bob are sta ble. No evident pneumothorax. 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 Postop changes.
[2018-05-27 18:41] LABS: Hemoglobin A1C 6.5 % (4.0-6.0)
== END | disposition home or self-care (01) ==
LOC: LABWHC1 09:44
PROVIDERS: ATTEND Internal Medicine
DX: Z00.00 Encounter for general adult medical examination without abnormal findings (principal); E11.9 Type 2 diabetes mellitus without complications; E78.2 Mixed hyperlipidemia; I11.9 Hypertensive heart disease without heart failure; K21.0 Gastro-esophageal reflux disease with esophagitis; Z98.890 Other specified postprocedural states
CPT/HCPCS: 36415; 71046; 80053; 80061; 82043; 82570; 83036; 84439; 84443; 85027

== ENCOUNTER → 2019-12-12 | Outpatient (CLI) | payer MEDICARE ==
[2019-12-12 10:10] LABS: HCT 39.8 % (39.0-53.0); MCH 29.9 pg (25.0-35.0); MCHC 32.7 g/dL (31.0-37.0); MCV 91.2 fL (80.0-100.0); Mean Platelet Volume 7.7; Platelet Count 213 k/uL (150-450); RBC 4.37 m/uL (4.30-5.90); RDW 13.3 % (11.5-15.5); WBC 6.6 k/uL (3.8-10.6)
[2019-12-12 10:19] LABS: African American GFR (CKD) >90 (>60 ml/min/1.73 sqM); Anion Gap 9 mmol/L; Blood Urea Nitrogen 12 mg/dL (9-20); Carbon Dioxide 26 mmol/L (22-30); Chloride 104 mmol/L (98-107); Non-African American GFR(CKD) >90 (>60 ml/min/1.73 sqM); Potassium 4.2 mmol/L (3.5-5.1); Sodium 139 mmol/L (137-145)
== END | disposition home or self-care (01) ==
LOC: LABPAT 09:29
PROVIDERS: ATTEND Internal Medicine Interventional Cardiology
DX: Z01.812 Encounter for preprocedural laboratory examination (principal); I25.5 Ischemic cardiomyopathy
CPT/HCPCS: 80051; 82565; 84520; 85027

== ENCOUNTER → 2019-12-15 | Day surgery (SDC) | payer MEDICARE, OTHER ==
[2019-12-11 11:12] VITALS: BMI 30.9
[~2019-12-15] MED LIST changes: -ACETAMINOPHEN TAB 500 MG TAB PO ONE; +ALPRAZolam 0.25 MG TAB PO PRN; +ALPRAZolam 0.5 MG TAB PO PRN; +ASPIRIN 325 MG TAB PO ONE; +ATORVASTATIN 80 MG TAB PO ONE; -HYDROmorphone 0.5 MG/0.5 ML SYRINGE IVP PRN; +IOPAMIDOL-370 125ML BTL INJ ONE; -LIDOCAINE 1% 20 ML VIAL (10MG/ML) FOR IV START INTRADERMA PRN; +LIDOCAINE 1% INJ 10MG/ML (20 ML MDV) ONE; +LIDOCAINE 1% INJ 10MG/ML (20 ML MDV) SQ ONE; +LISINOPRIL 5 MG TAB PO STA; -MELOXICAM 7.5 MG TAB PO ONE; +MIDAZOLAM 2 MG/2 ML VIAL IV ONE; +NITROGLYCERIN SL TABS 0.4 MG TAB SUBLINGUAL PRN; -ONDANSETRON 4 MG/2 ML VIAL IVP ONE; +RX INFO: IV CONTRAST WAS GIVEN 1 EACH MISC MISCELLANE PRN; +SODIUM CHLORIDE 0.9% 1,000 ML IV SCH; +SODIUM CHLORIDE 0.9% 1,000 ML in EMPTY BAG 1 BAG IV ONE; -TRANEXAMIC ACID 1,000 MG in SODIUM CHLORIDE 0.9% 50 ML IVPB ONE; -ceFAZolin IN SWFI 2 GM/20 ML SYRINGE IVP ONE
[2019-12-15 07:04] LABS: Glucose,Whole Blood 183 mg/dL (75-99)
[2019-12-15 07:17] VITALS: RESP 18; TEMP 98.6
[2019-12-15 07:22] LABS: Basophils % (A) 0 %; Eosinophils # (A) 0.3 k/uL (0-0.7); Eosinophils % (A) 4 %; HCT 41.2 % (39.0-53.0); HGB 13.7 gm/dL (13.0-17.5); Lymphocytes # (A) 1.7 k/uL (1.0-4.8); Lymphocytes % (A) 23 %; MCHC 33.2 g/dL (31.0-37.0); MCV 90.2 fL (80.0-100.0); Mean Platelet Volume 7.9; Monocytes # (A) 0.4 k/uL (0-1.0); Monocytes % (A) 5 %; Neutrophils # (A) 4.9 k/uL (1.3-7.7); Neutrophils % (A) 66 %; Platelet Count 237 k/uL (150-450); RBC 4.57 m/uL (4.30-5.90); RDW 13.1 % (11.5-15.5); WBC 7.5 k/uL (3.8-10.6)
[2019-12-15 07:40] LABS: African American GFR (CKD) >90 (>60 ml/min/1.73 sqM); Anion Gap 10 mmol/L; Blood Urea Nitrogen 16 mg/dL (9-20); Calcium 9.2 mg/dL (8.4-10.2); Carbon Dioxide 24 mmol/L (22-30); Chloride 105 mmol/L (98-107); Glucose 191 mg/dL (74-99); Non-African American GFR(CKD) >90 (>60 ml/min/1.73 sqM); Potassium 3.9 mmol/L (3.5-5.1); Sodium 139 mmol/L (137-145)
--- NOTE | 2019-12-15 10:16 | CC ---
CARDIAC CATHETERIZATION REPORT DATE OF SERVICE: December 15, 2019. PERFORMING PHYSICIAN: Primo Hernandez MD. PROCEDURE PERFORMED: 1. Selective left and right coronary angiogram. 2. TROY to LAD angiogram. 3. SVG to left circumflex angiogram. 4. SVG to RCA angiogram. 5. Left heart catheterization. INDICATION: This is a 74-year-old gentleman who sees Dr. Abram Huddleston as an outpatient with history of coronary artery disease and prior coronary artery bypass grafting with TROY to LAD, SVG to left circumflex, and SVG to RCA, was diagnosed recently with cardiomyopathy of unknown etiology. The heart catheterization is to rule out severe underlying coronary artery disease. APPROACH: Right common femoral artery. COMPLICATION: None. LEVEL OF SEDATION: Moderate with sedation length of 15 minutes. PROCEDURE DESCRIPTION: After obtaining an informed consent, the patient was brought to the cardiac laborer hide house. The right common femoral artery was cannulated using micropuncture technique, the micropuncture wire passed easily then I placed a 6-Italian sheath at the right radial artery. I did after that selective left and right coronary angiogram using JL4 and JR4 catheters. TROY to LAD angiogram, SVG to left circumflex angiogram, and SVG to RCA angiogram performed using the JR4 catheter. Left heart catheterization was performed using the JR4 catheter which crossed the aortic valve then I did pullback across the valve. The procedure was completed without any complication. SELECTIVE CORONARY ANGIOGRAM: 1. The left main appeared to have intermediate disease only. It bifurcates into LCX and LAD. 2. The left circumflex is occluded in the midportion. 3. The LAD is occluded in the proximal portion. 4. The RCA is occluded in the proximal portion. CORONARY BYPASSES ANGIOGRAM: 1. The TROY to LAD is patent. 2. The SVG to left circumflex is patent. 3. The SVG to RCA is patent. HEMODYNAMICS: The LVEDP was 10 to 12 mmHg without significant gradient across aortic valve. CONCLUSION: 1. Severe triple-vessel coronary artery disease. 2. Patent TROY to LAD. 3. Patent SVG to left circumflex. 4. Patent SVG to RCA. POSTPROCEDURE MANAGEMENT: 1. Maximize medical treatment. 2. Follow up with the patient. MMODL / IJN: [id number] /
[2019-12-15 16:20] VITALS: BP 167/68; PULSE 76
== END ==
LOC: CATHCVL 06:20
PROVIDERS: ATTEND Internal Medicine Interventional Cardiology
DX: I25.10 Atherosclerotic heart disease of native coronary artery without angina pectoris (principal); I42.9 Cardiomyopathy, unspecified; I10 Essential (primary) hypertension; E78.2 Mixed hyperlipidemia; Z95.1 Presence of aortocoronary bypass graft; E78.00 Pure hypercholesterolemia, unspecified; E11.9 Type 2 diabetes mellitus without complications; Z79.899 Other long term (current) drug therapy; Z82.49 Family history of ischemic heart disease and other diseases of the circulatory system; Z79.84 Long term (current) use of oral hypoglycemic drugs; Z79.82 Long term (current) use of aspirin
CPT/HCPCS: 93459; 80048; 85025; C1760; C1894; C1769 ×2; J2250; J2001; Q9967

== ENCOUNTER → 2022-02-03 | Outpatient (CLI) | payer MEDICARE ==
[~2022-02-03] MED LIST changes: -ALPRAZolam 0.25 MG TAB PO PRN; -ALPRAZolam 0.5 MG TAB PO PRN; -ASPIRIN 325 MG TAB PO ONE; -ATORVASTATIN 80 MG TAB PO ONE; +BEBTELOVIMAB (EUA) 175 MG/2 ML VIAL IV ONE; -IOPAMIDOL-370 125ML BTL INJ ONE; -LIDOCAINE 1% INJ 10MG/ML (20 ML MDV) ONE; -LIDOCAINE 1% INJ 10MG/ML (20 ML MDV) SQ ONE; -LISINOPRIL 5 MG TAB PO STA; -MIDAZOLAM 2 MG/2 ML VIAL IV ONE; -NITROGLYCERIN SL TABS 0.4 MG TAB SUBLINGUAL PRN; -RX INFO: IV CONTRAST WAS GIVEN 1 EACH MISC MISCELLANE PRN; -SODIUM CHLORIDE 0.9% 1,000 ML IV SCH; -SODIUM CHLORIDE 0.9% 1,000 ML in EMPTY BAG 1 BAG IV ONE; +SODIUM CHLORIDE 0.9% 500 ML 500 ML in EMPTY BAG 1 BAG IV PRN
[2022-02-03 13:42] VITALS: RESP 16; TEMP 98.2
[2022-02-03 14:09] VITALS: BP 150/70; PULSE 64
== END ==
LOC: PROCWHC3 12:58
PROVIDERS: ATTEND Family Medicine
DX: U07.1 COVID-19 (principal); E66.9 Obesity, unspecified; E11.9 Type 2 diabetes mellitus without complications; Z88.5 Allergy status to narcotic agent; Z87.891 Personal history of nicotine dependence; Z68.29 Body mass index [BMI] 29.0-29.9, adult
CPT/HCPCS: 96374; Q0222; M0222

== ENCOUNTER 2024-06-13 06:12 | Day surgery (SDC) | payer MEDICARE ==
[2024-06-12 12:00] VITALS: BMI 27.0
[2024-06-13] MEDS ORDERED: SODIUM CHLORIDE 0.9% 1,000 ML in EMPTY BAG 1 BAG IV SCH (06:35)
[2024-06-13] MEDS ORDERED: ASPIRIN 325 MG TAB PO STA (06:35)
[2024-06-13] MEDS ORDERED: ALPRAZolam 0.25 MG TAB PO PRN (06:35)
[2024-06-13] MEDS ORDERED: ALPRAZolam 0.5 MG TAB PO PRN (06:35)
[2024-06-13] MEDS ORDERED: NITROGLYCERIN SL TABS 0.4 MG TAB SUBLINGUAL PRN (06:35)
[2024-06-13] MEDS: SODIUM CHLORIDE 0.9% 1,000 ML IV ONE (06:51)
[2024-06-13 07:11] LABS: Glucose,Whole Blood 149 mg/dL (70-110)
[2024-06-13 07:17] VITALS: TEMP 98.2
[2024-06-13 07:18] LABS: Basophils % (A) 0 %; Eosinophils # (A) 0.2 k/uL (0-0.7); Eosinophils % (A) 3 %; HCT 39.8 % (39.0-53.0); HGB 13.3 gm/dL (13.0-17.5); Lymphocytes # (A) 1.8 k/uL (1.0-4.8); Lymphocytes % (A) 27 %; MCH 32.5 pg (25.0-35.0); MCHC 33.3 g/dL (31.0-37.0); MCV 97.7 fL (80.0-100.0); Mean Platelet Volume 7.3; Monocytes # (A) 0.5 k/uL (0-1.0); Monocytes % (A) 8 %; Neutrophils % (A) 60 %; Platelet Count 221 k/uL (150-450); RBC 4.08 m/uL (4.30-5.90); RDW 12.6 % (11.5-15.5); WBC 6.8 k/uL (3.8-10.6)
[2024-06-13 07:35] LABS: African American GFR (CKD) 87 (>60 ml/min/1.73 sqM); Anion Gap 9 mmol/L; Blood Urea Nitrogen 27 mg/dL (9-20); Calcium 10.2 mg/dL (8.4-10.2); Carbon Dioxide 23 mmol/L (22-30); Chloride 103 mmol/L (98-107); Glucose 150 mg/dL (74-99); Non-African American GFR(CKD) 75 (>60 ml/min/1.73 sqM); Potassium 4.8 mmol/L (3.5-5.1); Sodium 135 mmol/L (137-145)
[2024-06-13] MEDS ORDERED: LIDOCAINE 1% INJ 10MG/ML (20 ML MDV) ONE (07:42)
[2024-06-13] MEDS: MIDAZOLAM 2 MG/2 ML VIAL IVP ONE (07:48)
[2024-06-13] MEDS: HEPARIN SODIUM,PORCINE (1 ML) 2,500 UNIT in SODIUM CHLORIDE 0.9% 250 ML IRRIGATION PRN (07:48)
[2024-06-13] MEDS: HEPARIN SODIUM,PORCINE 10,000 UNIT in SODIUM CHLORIDE 0.9% 1,000 ML IRRIGATION PRN (07:48)
[2024-06-13] MEDS: LIDOCAINE 1% INJ 10MG/ML (20 ML MDV) SQ ONE (07:57)
[2024-06-13] MEDS: IOPAMIDOL-370 100ML BTL INJ ONE (08:13)
[2024-06-13] MEDS ORDERED: RX INFO: IV CONTRAST WAS GIVEN 1 EACH MISC MISCELLANE PRN (08:23)
--- NOTE | 2024-06-13 08:26 | P.PCN ---
Date of Procedure: 06/13/24 Operative Findings: CARDIAC CATHETERIZATION PERFORMING PHYSICIAN: Primo Hernandez MD, RPVI PROCEDURE PERFORMED: 1. Selective right and left coronary angiogram and TROY to LAD angiogram and SVG to RCA and SVG to LCx angiogram 2. Left heart catheterization 3. Ultrasound-guided access of the right common femoral artery and selective right common femoral artery angiogram INDICATION: Symptomatic patient with abnormal myocardial perfusion imaging stress test COMPLICATION: None APPROACH: Right common femoral artery LEVEL OF SEDATION: Moderate with sedation in length of 20 minutes PROCEDURE DESCRIPTION: After obtaining an informed consent, the patient was brought to cardiac shop laborer. Local anesthesia was performed using lidocaine subcutaneously. The right common femoral artery was cannulated using Seldinger technique, the guidewire passed easily, following that we advanced a 6 Congolese sheath dilator assembly, the wire and dilator were removed and sheath was flushed. Selective right and left coronary angiogram using a 6-Congolese JR4 and JL catheters. TROY to LAD angiogram was performed using the JR4 catheter. SVG to RCA angiogram was performed using JR4 catheter. SVG to LCx angiogram was performed using an LCB catheter Following that we did left heart catheterization using 6-Congolese pigtail catheter. The procedure was completed there was no complication. SELECTIVE CORONARY ANGIOGRAM: The right coronary artery: Large-caliber vessel and a dominant vessel and appears to be occluded Left main: Calcified with mild to moderate disease The left circumflex: Is occluded in the proximal portion The left anterior descending artery: Is occluded proximally Coronary bypasses angiogram The TROY to LAD is patent The SVG to LCx is patent The SVG to RCA is patent HEMODYNAMICS: The LVEDP was about 18 mmHg with no significant gradient across aortic valve CONCLUSION: 1. Severe triple-vessel coronary artery disease 2. Patent TROY to LAD and patent SVG to LCx and patent SVG to RCA 3. Mildly elevated left-sided filling pressure POSTPROCEDURE MANAGEMENT: Medical treatment
[2024-06-13] MEDS ORDERED: SODIUM CHLORIDE 0.9% 1,000 ML IV SCH (08:30)
[2024-06-13 10:21] VITALS: RESP 16
[2024-06-13 16:48] VITALS: BP 115/63; PULSE 69
== END 2024-06-13 16:07 | disposition home or self-care (01) ==
LOC: CATHCVL 06:12
PROVIDERS: ATTEND Internal Medicine Interventional Cardiology
DX: I25.110 Atherosclerotic heart disease of native coronary artery with unstable angina pectoris (principal); I25.84 Coronary atherosclerosis due to calcified coronary lesion; Z95.1 Presence of aortocoronary bypass graft; I25.5 Ischemic cardiomyopathy; I10 Essential (primary) hypertension; E11.69 Type 2 diabetes mellitus with other specified complication; E78.2 Mixed hyperlipidemia; I77.810 Thoracic aortic ectasia; I08.3 Combined rheumatic disorders of mitral, aortic and tricuspid valves; Z79.82 Long term (current) use of aspirin; Z79.84 Long term (current) use of oral hypoglycemic drugs; Z79.899 Other long term (current) drug therapy; Z95.810 Presence of automatic (implantable) cardiac defibrillator; Z82.49 Family history of ischemic heart disease and other diseases of the circulatory system
CPT/HCPCS: 80048; 85025; 93459

== ENCOUNTER 2024-07-29 05:43 | Day surgery (SDC) | payer MEDICARE ==
--- NOTE | 2024-07-28 08:10 | P.HPOR ---
History of Present Illness H&P Date: 07/28/24 Chief Complaint: Right knee pain The patient is a 79-year-old retired male who presents with right knee pain and instability. He notes he had an injury last month twisting his knee. He has had a difficult time putting any weight on it ever since. He's tried medications in addition to an injection without much relief. He has been using crutches. Past Medical History Past Medical History: Coronary Artery Disease (CAD), Cancer, Diabetes Mellitus, GERD/Reflux, Hyperlipidemia, Hypertension, Respiratory Disorder Additional Past Medical History / Comment(s): LUNG ASBESTOSIS, skin CA to nose and ear-removed History of Any Multi-Drug Resistant Organisms: None Reported Past Surgical History: AICD, Coronary Bypass/CABG, Heart Catheterization, Hernia Repair, Joint Replacement, Orthopedic Surgery Additional Past Surgical History / Comment(s): colonoscopy, Lt TKA, CABG at age [age] vessel, yung cataracts, abdominal hernia repair Past Anesthesia/Blood Transfusion Reactions: No Reported Reaction Type of Cardiac Device: AICD Device Placement Date:: 2020 Med[employer] left chest Smoking Status: Never smoker - Past Family History Brother(s) Family Medical History: Cancer Medications and Allergies Home Medications Medication Instructions Recorded Confirmed Type Atorvastatin [Lipitor] 80 mg PO HS 10/15/14 07/23/24 History Omeprazole 40 mg PO HS 10/15/14 07/23/24 History Aspirin [Adult Low Dose Aspirin EC] 81 mg PO DAILY 11/06/17 07/23/24 History lisinopriL [Zestril] 5 mg PO DAILY 11/06/17 07/23/24 History Metoprolol Tartrate [Lopressor] 50 mg PO HS 02/03/22 07/23/24 History Cholecalciferol (Vitamin D3) 50 mcg PO DAILY 06/10/24 07/23/24 History [Vitamin D3 (50 Mcg = 2000 Iu)] Cyanocobalamin (Vitamin B-12) 1,000 mcg PO DAILY 06/10/24 07/23/24 History [Vitamin B-12] Empagliflozin [Jardiance] 25 mg PO DAILY 06/10/24 07/23/24 History metFORMIN HCL ER [Glucophage XR] 500 mg PO DAILY 06/10/24 07/23/24 History Allergies Allergy/AdvReac Type Severity Reaction Status Date / Time No Known Allergies Allergy Verified 07/23/24 11:20 Physical Examination - Knee right Appearance: effusion Effusion grade: grade 1 Varus alignment in stance: 10 degrees Tenderness with palpation: anterior, medial Pain: throughout ROM Gait: limping ROM: extension: -15 degrees ROM: flexion: 110 degrees Crepitus with motion: Yes Strength: extension: 5/5 Strength: flexion: 5/5 Meniscal tests: medial meniscal tests: positive, medial joint line pain: positive Results The patient is a well-developed well-nourished male approximately 5 foot 8, 180 pounds of mesomorphic habitus. HEENT exam is nonfocal, neck is supple. He has painless passive motion of his right hip. Straight leg raise is negative. He is tender about the medial joint line of the right knee. Collaterals are stable, Gabe was negative, Bryce's is equivocal. His distal neurovascular exam appears intact in the right lower extremity. - Diagnostic results Knee x-ray: image reviewed (X-rays of the right knee obtaining the office show severe medial compartment and patellofemoral compartment osteoarthrosis with subchondral sclerosis and [id number] changes.) Assessment and Plan Assessment: Right knee severe medial and patellofemoral compartment osteoarthrosis Plan: I talked to the patient at length regarding his condition along with treatment options. At this point he is quite symptomatic having pain and mechanical symptoms despite conservative measures. After a thorough discussion he opts to proceed with surgery. We'll plan to proceed with right total knee arthroplasty. Risks and benefits were discussed at length in layman's terms. We will institute DVT prophylaxis postoperatively.
[~2024-07-29 05:43] MED LIST changes: -BEBTELOVIMAB (EUA) 175 MG/2 ML VIAL IV ONE; -SODIUM CHLORIDE 0.9% 500 ML 500 ML in EMPTY BAG 1 BAG IV PRN; +TRANEXAMIC 1,000 MG/100ML-NACL 1,000 MG in SALINE 1 100ML.BAG IVPB PRN
[2024-07-29] MEDS: IV FLUID CONTINUATION 1,000 ML IV ONE (06:35)
[2024-07-29] MEDS: LACTATED RINGERS 1,000 ML IV SCH (06:35)
[2024-07-29] MEDS: LIDOCAINE 1% (10MG/ML) FOR IV START INTRADERMA PRN (06:35)
[2024-07-29] MEDS: ACETAMINOPHEN TAB 500 MG TAB PO PRN (06:47)
[2024-07-29] MEDS: MELOXICAM 7.5 MG TAB PO PRN (06:48)
[2024-07-29 06:50] LABS: Glucose,Whole Blood 111 mg/dL (70-110)
[2024-07-29] MEDS: MIDAZOLAM 2 MG/2 ML VIAL IV PRN (06:52)
[2024-07-29] MEDS ORDERED: fentaNYL (PF) 50 MCG/ML 2 ML AMP IV PRN (07:00)
[2024-07-29] MEDS ORDERED: fentaNYL (PF) 50 MCG/ML 2 ML AMP IVP PRN (07:00)
[2024-07-29] MEDS ORDERED: HYDROmorphone 0.5 MG/0.5 ML SYRINGE IVP PRN ×3 (07:00→09:26)
[2024-07-29] MEDS: ONDANSETRON 4 MG/2 ML VIAL IVP ONE (07:05)
[2024-07-29] MEDS: DEXAMETHASONE SOD PHOSPHATE 4 MG/ML 1 ML VIAL IV ONE (07:05)
[2024-07-29] MEDS ORDERED: DEXAMETHASONE SOD PHOSPHATE 4 MG/ML 1 ML VIAL ONE (07:24)
[2024-07-29] MEDS ORDERED: ROPIVACAINE 5 MG/ML 30 ML VIAL ONE (07:24)
[2024-07-29] MEDS ORDERED: VASOPRESSIN 20 UNIT/ML 1 ML VIAL ONE (07:24)
[2024-07-29] MEDS ORDERED: PROPOFOL 10 MG/ML 20 ML VIAL IV ONE (07:24)
[2024-07-29] MEDS ORDERED: fentaNYL (PF) 50 MCG/ML 2 ML AMP ONE (07:24)
[2024-07-29] MEDS ORDERED: ePHEDrine 50 MG/ML 1 ML VIAL ONE (07:24)
[2024-07-29] MEDS ORDERED: PHENYLEPHRINE 10 MG/ML VIAL ONE (07:24)
[2024-07-29] MEDS ORDERED: TRANEXAMIC 1,000 MG/100ML-NACL PREMIX BAG ONE (07:24)
--- NOTE | 2024-07-29 07:30 | P.ANPRN ---
Procedure Note - Anesthesia - Nerve Block Performed Right iPack Single Time Out Performed: Yes Date of Procedure: 07/29/24 Procedure Start Time: 06:52 Procedure Stop Time: 05:56 Location of Patient: PreOp Indication: Acute Post-Operative Pain, Analgesia, Requested by Surgeon Sedation Type: Sedate with meaningful contact maintained Preparation: Sterile Prep Position: Left Lateral Catheter: None Needle Types: Pajunk Needle Gauge: 21 Ultrasound used to visualize needle placement: Yes Ultrasound used to observe medication spread: Yes Injectate: 0.5% Ropivacaine (see comment for volume) (Ropiv 20ml+Decadron 4mg) Blood Aspirated: No Pain Paresthesia on Injection Noted: No Resistance on Injection: Normal Image Stored and Saved: Yes Events: Uneventful and Well Tolerated
--- NOTE | 2024-07-29 07:31 | P.ANPRN ---
Procedure Note - Anesthesia - Nerve Block Performed Right Adductor Canal Infusion Time Out Performed: Yes Date of Procedure: 07/29/24 Procedure Start Time: 06:56 Location of Patient: PreOp Indication: Acute Post-Operative Pain, Analgesia, Requested by Surgeon Sedation Type: Sedate with meaningful contact maintained Preparation: Sterile Prep Position: Supine Catheter: Indwelling Needle Types: On-Q Ultrasound used to visualize needle placement: Yes Ultrasound used to observe medication spread: Yes Injectate: 0.5% Ropivacaine (see comment for volume) (Ropiv 20ml+[id number]) Blood Aspirated: No Pain Paresthesia on Injection Noted: No Resistance on Injection: Normal Image Stored and Saved: Yes Events: Uneventful and Well Tolerated
[2024-07-29] MEDS: ceFAZolin 1,000 MG in SODIUM CHLORIDE 0.9% 1,000 ML IRRIGATION ONE (07:58)
[2024-07-29] MEDS: LACTATED RINGERS 1,000 ML IV ONE ×2 (08:25→11:28)
[2024-07-29] MEDS ORDERED: MAGNESIUM HYDROXIDE 2,400 MG/30 ML CUP PO PRN (09:26)
[2024-07-29] MEDS ORDERED: hydrOXYzine pamoate 25 MG CAP PO PRN (09:26)
[2024-07-29] MEDS ORDERED: NALOXONE 0.4 MG/ML 1 ML VIAL IV PRN (09:26)
[2024-07-29] MEDS ORDERED: HYDROcodone/APAP 5-325MG 1 EACH TAB PO PRN (09:26)
[2024-07-29] MEDS ORDERED: ONDANSETRON 4 MG/2 ML VIAL IVP PRN (09:26)
--- NOTE | 2024-07-29 09:38 | P.OP ---
Date of Procedure: 07/29/24 Preoperative Diagnosis: Right knee severe tricompartmental osteoarthrosis Postoperative Diagnosis: Same Procedure(s) Performed: Right total knee arthroplastycementedposterior stabilized Implants: DePuy attune size 7 cemented femoral component, size 6 cemented tibial component, 12 mm articular surface, 38 mm cemented patellar component. This is a posterior stabilized implant. Anesthesia: regional, spinal Surgeon: Jaime Gage Lubrication Equipment Servicer #1: Osmany Guardado Estimated Blood Loss (ml): 50 Pathology: none sent Condition: stable Disposition: PACU Indications for Procedure: The patient is a 79-year-old male who presents with progressive right knee pain secondary to osteoarthrosis despite conservative measures. A discussion of the risks and benefits of operative intervention versus continued conservative measures was made with the patient. He opted to proceed with surgery. Operative risks include infection, neurovascular injury, development of blood clots, fracture, possible component loosening/failure and possible need for subsequent procedures was discussed. Informed consent was obtained. Operative Findings: As below Description of Procedure: The patient was brought to the operating room, and after induction of spinal anesthesia the right lower extremity was prepped and draped in a normal fashion. The tourniquet was inflated to 270 mm marker. A longitudinal incision extending 3 finger breaths above the superior pole of patella extending to the medial aspect the tibial tubercle was then made. The skin and subcutaneous tissues were divided sharply. Electrocautery was used for hemostasis. A medial parapatellar arthrotomy was performed. The medial soft tissues to include the superficial and deep portions of the medial collateral ligament were elevated subperiosteally. The patella was everted. A portion of the retropatellar fat pad was excised sharply. The anterior cruciate ligament was sacrificed. Blunt retractors were placed. A starting hole was made in the distal femur 1 cm anterior to the posterior cruciate ligament origin. An intramedullary femoral guide was then inserted planning on 5 valgus distal cut with 9 mm distal resection. The cutting block was pinned in place. The distal cut was then made. The posterior referencing sizing guide was utilized. I felt size 7 was most appropriate. 3 of external rotation was built into the system and verified off the trans-epicondylar axis and the posterior condyles. The cutting block was pinned in place. The anterior, posterior, and chamfer cuts then made. Bone fragments were removed. The intercondylar guide was placed and the notch cut was made with a sagittal saw. The bone block was removed in one fragment. The trial component was then placed. There is good anterior to posterior and medial to lateral fit. The distal peg holes were drilled. The trial component was removed. Attention was then paid towards preparing the proximal tibia. An extra medullary guide was utilized in line with the tibial shaft and second metatarsal distally. I planned on 2 mm resection from the medial compartment. The cutting block was pinned in place. The proximal tibial cut was then made. The bone was removed in one fragment. The remnants of the medial and lateral menisci were excised at the capsular junction with electrocautery. The tibia sized most appropriately at size 6. The trial femoral and tibial components were placed along with a 12 mm articular surface. I was able to obtain full flexion and extension with internal and external rotation. After several flexion and extension cycles, the tibial rotation was marked with electrocautery line with the medial one third of the tibial tubercle. Attention was then paid towards preparing the patella. A patella reamer was utilized taking stem to 14 mm of bone stock. A good flush cut was made. The patella sized most appropriately 38 mm. The peg holes were drilled. The trial components placed. I had good patellofemoral tracking with no hands technique. The trial components were then removed. The tibia was prepared in the appropriate rotation with appropriate drill and keel punch. The posterior osteophytes were removed with a curved osteotome. The flexion and extension gaps were checked and felt to be symmetric at 12 mm. A trial components were then removed. The bony surfaces were prepared with pulsatile lavage and dried. The tibial component was then cemented place was fully seated. Excess cement was removed. The femoral component cemented place and was fully seated. Excess cement was removed. The trial 12 mm articular surface was placed and the knee was put in full extension. The patella component was cemented place. After the cement had sufficiently hardened, the knee was again taken through a range of motion. Again I was able to obtain full flexion and extension with varus and valgus stress. The trial 12 mm articular surface was removed and the final one inserted. This was fully seated. Care was taken to avoid any soft tissue interposition. Pulsatile lavage was again utilized. The medial parapatellar arthrotomy was closed with #2 Ethibond suture. The tourniquet was deflated with approximately 60 minutes total tourniquet time. Final hemostasis was obtained with the cautery. There was minimal bleeding therefore a deep drain was not placed. The subcutaneous tissues were reapproximated with interrupted 2-0 Vicryl sutures. The skin was reapproximated with 3-0 subcuticular strata fix suture. Skin tape and adhesive was applied. A sterile dressing was applied. The patient was awoken from sedation and transferred to recovery room in good condition. Blood loss was estimated at 50 mL. No complications were incurred. Sponge and needle counts were correct at the end of the case. Osmany HARRELL assisted during the major components of this case to include exposure, bone resection, implantation, and closure.
[2024-07-29] MEDS: ROPIVACAINE 1,100 MG, SODIUM CHLORIDE 0.9% 500 ML 330 ML, EMPTY PAIN BALL 1 EACH MISCELLANE PRN (09:47)
[2024-07-29 10:12] LABS: Glucose,Whole Blood 132 mg/dL (70-110)
--- NOTE | 2024-07-29 10:49 | XR ---
EXAMINATION TYPE: XR knee 2 views RT DATE OF EXAM: 07/29/2024 Comparison: Outside radiograph 06/20/2024 Clinical History: 79-year-old male Evaluation for Postop abnormality and alignment Findings: Interval placement of right total knee arthroplasty. Both distal femoral and proximal tibial componen ts of prosthesis are well seated without periprosthetic fracture. Alignment grossly anatomic. Anterio r soft tissue swelling with intra-articular air related to recent operation. Overlying anterior dress ing. Extensive vascular calcifications are noted. Surgical clips medial aspect of the right calf. Impression: Uncomplicated postoperative appearance right total knee arthroplasty. [facility], , 07/29/2024 10:46 AM
[2024-07-29 11:54] LABS: Glucose,Whole Blood 139 mg/dL (70-110)
[2024-07-29] MEDS: HYDROcodone/APAP 7.5-325MG 1 EACH TAB PO PRN (12:36)
--- NOTE | 2024-07-29 14:15 | P.CONS ---
History of Present Illness - Reason for Consult Consult date: 07/29/24 - History of Present Illness Patient is a 79-year-old male with PMH of type 2 diabetes, hypertension, hyperlipidemia, CAD status post CABG, left TKA is admitted to the hospital for right total knee replacement procedure. Patient underwent the procedure on 07/29/2024. Internal medicine service was consulted for medical management. This is a postop day 0. Surgery was uncomplicated. Patient complaining of mild pain as expected postsurgery. Otherwise patient is stable and denies any shortness of breath, chest pain, abdominal discomfort, diarrhea, constipation and numbness, tingling or weakness in upper or lower extremities. Review of systems: Pertinent positives and negatives as discussed in HPI, a complete review of systems was performed and all other systems are negative. Physical examination: Vital signs reviewed General: non toxic, no distress, appears at stated age, normal weight Cardiovascular: S1S2 reg, no murmur, positive dorsalis pedis pulse bilateral, no edema Lungs: CTA bilateral, no rhonchi, no rales, no accessory muscle use Abdominal: soft, nontender to palpation, no guarding Ext: muscle strength 5 out of 5 in all 4 extremities grossly, no gross muscle atrophy, no contractures, right lower extremity is not examined due to mild pain Psych: Alert, oriented, appropriate affect Assessment/Plan: Patient is a 79-year-old male with PMH of type 2 diabetes, hypertension, hyperlipidemia, CAD status post CABG, left TKA is admitted to the hospital for right total knee replacement procedure. Patient underwent the procedure on 07/29/2024. Internal medicine service was consulted for medical management. This is a postop day 0. Surgery was uncomplicated. Patient complaining of mild pain as expected postsurgery. #Right total knee arthroplasty Postop day 0 Patient stable Management including pain control as per orthopedic #Chronic conditions Hypertension, diabetes type 2, hyperlipidemia, CAD Home medications reconciled DVT prophylaxis: Xarelto 10 mg p.o. daily GI prophylaxis: Protonix 40 mg p.o. at bedtime I saw and evaluated the patient during the funez and critical portions of this encounter, and discussed the case in detail with the resident author of this note, I agree with the Assessment and Plan, and my changes, if any, are highlighted in blue. Past Medical History Past Medical History: Coronary Artery Disease (CAD), Cancer, Diabetes Mellitus, GERD/Reflux, Hyperlipidemia, Hypertension, Respiratory Disorder Additional Past Medical History / Comment(s): LUNG ASBESTOSIS, skin CA to nose and ear-removed History of Any Multi-Drug Resistant Organisms: None Reported Past Surgical History: AICD, Coronary Bypass/CABG, Heart Catheterization, Hernia Repair, Joint Replacement, Orthopedic Surgery Additional Past Surgical History / Comment(s): colonoscopy, Lt TKA, CABG at age [age] vessel, yung cataracts, abdominal hernia repair Past Anesthesia/Blood Transfusion Reactions: No Reported Reaction Type of Cardiac Device: AICD Device Placement Date:: 2020 [employer] left chest Past Psychological History: No Psychological Hx Reported Smoking Status: Never smoker Past Alcohol Use History: Occasional Additional Past Alcohol Use History / Comment(s): used to chew tobacco-quit 2007. <14 drinks/week Past Drug Use History: None Reported - Past Family History Brother(s) Family Medical History: Cancer Medications and Allergies Home Medications Medication Instructions Recorded Confirmed Type Atorvastatin [Lipitor] 80 mg PO HS 10/15/14 07/23/24 History Omeprazole 40 mg PO HS 10/15/14 07/23/24 History Aspirin [Adult Low Dose Aspirin EC] 81 mg PO DAILY 11/06/17 07/23/24 History lisinopriL [Zestril] 5 mg PO DAILY 11/06/17 07/23/24 History Metoprolol Tartrate [Lopressor] 50 mg PO HS 02/03/22 07/23/24 History Cholecalciferol (Vitamin D3) 50 mcg PO DAILY 06/10/24 07/23/24 History [Vitamin D3 (50 Mcg = 2000 Iu)] Cyanocobalamin (Vitamin B-12) 1,000 mcg PO DAILY 06/10/24 07/23/24 History [Vitamin B-12] Empagliflozin [Jardiance] 25 mg PO DAILY 06/10/24 07/23/24 History metFORMIN HCL ER [Glucophage XR] 500 mg PO DAILY 06/10/24 07/23/24 History Allergies Allergy/AdvReac Type Severity Reaction Status Date / Time No Known Allergies Allergy Verified 07/23/24 11:20 Physical Exam Osteopathic Statement: *. No significant issues noted on an osteopathic structural exam other than those noted in the History and Physical/Consult. Vitals: Vital Signs Temp Pulse Resp BP BP Pulse Ox 07/29/24 11:22 97.6 F 91 18 103/51 95 10/22/24 10:38 86 14 113/42 94 L 07/29/24 10:22 83 13 119/46 98 07/29/24 10:07 84 13 119/44 100 07/29/24 09:52 74 13 118/49 100 07/29/24 09:36 96.7 F L 85 8 L 116/44 100 07/29/24 07:05 65 16 107/51 99 07/29/24 06:36 97.0 F L 85 16 116/51 98 Intake and Output 07/28/24 07/29/24 07/29/24 22:59 06:59 14:59 Intake Total 500 2550 Output Total 50 Balance 500 2500 Intake: IV 500 2550 Output: Estimated Blood Loss 50 Other: Weight 83.1 kg 83.1 kg Results Labs: Abnormal Lab Results - Last 24 Hours (Table) 07/29/24 07/29/24 07/29/24 Range/Units 06:42 10:11 11:22 POC Glucose (mg/dL) 111 H 132 H 139 H (70-110) mg/dL
[2024-07-29 16:57] LABS: Glucose,Whole Blood 136 mg/dL (70-110)
[2024-07-29] MEDS: ATORVASTATIN 80 MG TAB PO SCH (20:34)
[2024-07-29] MEDS: SENNOSIDES-DOCUSATE SODIUM 1 EACH TAB PO SCH (20:34)
[2024-07-29] MEDS: PANTOPRAZOLE 40 MG TABLET PO SCH (20:34)
[2024-07-29] MEDS: METOPROLOL TARTRATE 50 MG TAB PO SCH (20:34)
[2024-07-29 20:59] LABS: Glucose,Whole Blood 187 mg/dL (70-110)
[2024-07-30 04:57] VITALS: RESP 17
[2024-07-30 06:58] LABS: Glucose,Whole Blood 113 mg/dL (70-110)
[2024-07-30] MEDS: lisinopriL 5 MG TAB PO SCH (08:18)
[2024-07-30] MEDS: RIVAROXABAN 10 MG TAB PO SCH (08:18)
[2024-07-30] MEDS: ASPIRIN 81 MG PO SCH (08:18)
[2024-07-30] MEDS ORDERED: DEXTROSE 50% SYRINGE 50 ML IVP PRN ×2 (08:21)
--- NOTE | 2024-07-30 08:29 | P.PN ---
Progress Note - Text Progress Note Date: 07/30/24 Postoperative day # 1 status post total knee arthroplasty, and adductor canal catheter placed for postoperative analgesia, currently at ropivacaine 0.2% 8 mL per hour and continuous infusion, visual analogue scale is 2/10, patient using oral pain medication for breakthrough pain. Assessment and plan= Acute postoperative pain, adductor canal catheter for pain control, pain is well controlled we'll continue the same management.
[2024-07-30 08:50] LABS: Basophils # (A) 0.02 X 10*3/uL (0.00-0.10); Basophils % (A) 0.2 %; Eosinophils # (A) 0 X 10*3/uL (0.04-0.35); Eosinophils % (A) 0 %; HCT 30.9 % (39.6-50.0); HGB 10.1 g/dL (13.0-17.0); Lymphocytes # (A) 1.18 X 10*3/uL (0.90-5.00); Lymphocytes % (A) 12.6 %; MCH 31.5 pg (27.0-32.0); MCHC 32.7 g/dL (32.0-37.0); MCV 96.3 FL (80.0-97.0); Mean Platelet Volume 10.4 FL (9.5-12.2); Monocytes # (A) 0.95 X 10*3/uL (0.20-1.00); Monocytes % (A) 10.1 %; NRBC Per 100 WBC 0 X 10*3/uL (0.00-0.01); Neutrophils % (A) 76.6 %; Platelet Count 148 X 10*3/uL (140-440); RBC 3.21 X 10*6/uL (4.40-5.60); RDW 12.7 % (11.5-14.5)
[2024-07-30 11:27] LABS: Glucose,Whole Blood 227 mg/dL (70-110)
[2024-07-30] MEDS: INSULIN ASPART (NovoLOG) 100 UNIT/ML VIAL SQ SCH (11:38)
--- NOTE | 2024-07-30 12:41 | P.DS ---
Providers Date of admission: 07/29/2024 Expected date of discharge: 07/30/24 Attending physician: Jaime Gage Consults: 07/29/24 09:26 Consult Physician Routine Consulting Provider: Elmira Childers Consult Reason/Comments: medical management s/p right total knee arthroplas Do you want consulting provider notified?: Yes Primary care physician: Sanju Cade [facility] Course: Date of admission: 07/29/2024 Date of discharge: 07/30/2024 Admission diagnosis: right knee Osteoarthritis Discharge diagnosis: same Attending physician: Dr. Gage Surgical procedures: Right Total knee arthroplasty Brief history: Patient is a 79-year-old male with a history of progressive primary left knee osteoarthritis. At this point patient has failed conservative treatment measures and has opted to proceed with a elective right total knee arthroplasty. Hospital course: Details of patient's surgery can be found in operative report. Patient tolerated the procedure well and was subsequently transported to orthopedic floor. Patient's orthopeidc and medical care was provided daily. Patient had daily laboratory tests performed for evaluation of overall blood counts. Patient had daily physical therapy to include strengthening range of motion as well as education with walker ambulation. Patient was treated with Xarelto for their postoperative DVT prophylaxis during their inpatient stay. Patient was noted to have a relatively uneventful postoperative course. Patient reported satisfactory pain control with oral pain medications by postoperative day 1. Patient showed satisfactory progress with physical therapy. Patient moved steadily through the program and had no difficulty meeting the goals by postoperative day 1. Given patient's otherwise satisfactory course and having met physical therapy goals, plan is to discharge patient home with health services on postoperative day 1. Discharge condition/disposition: Patient will be discharged home with health se rvices in stable condition. Discharge medications: Instructions are given on resumption of patient's normal daily medications per primary care recommendation, in addition patient will be prescribed [place]; senna; Eliquis 2.5 mg twice a day 2 weeks.. Discharge instructions: 1. Wound care and infection precautions, keep incision dry and covered while showering, no lotions, creams, moisturizers. No soaking, tubs, pools, hottubs. Do not scrub over the incision. 2. Weight-bear as tolerated with walker / cane until follow-up. 3. Ice and elevate when necessary. Do not exceed 20 minutes per hour with ice pack. 4. Utilize compression sleeve until seen at first follow up appointment. 5. Visiting nursing care. 6. Home physical therapy including home CPM. 7. Pain meds and anticoagulants per prescription. 8. Pain medication has potential to cause constipation. Increase oral fluid and fiber intake. Contact primary care provider if you have not had a bowel movement within 48 hours after discharge 9. No anti-inflammatory medication until discussed at first post operative visit, this including Motrin, Aleve, Mobic, Diclofenac. 10. Follow up in office at 2 weeks postop with Pa Rodriguez PA-C / Osmany Guardado PA-C 11. Follow up with your primary care doctor 7-10 days after discharge. 12. Contact [facility] with any questions, . Assessment: Right knee osteoarthritis Procedures: Right total knee arthroplasty Patient Condition at Discharge: Good Plan - Discharge Summary Discharge Rx Participant: Yes New Discharge Prescriptions: Continue Omeprazole 40 mg PO HS Atorvastatin [Lipitor] 80 mg PO HS lisinopriL [Zestril] 5 mg PO DAILY Aspirin [Adult Low Dose Aspirin EC] 81 mg PO DAILY Cholecalciferol (Vitamin D3) [Vitamin D3 (50 Mcg = 2000 Iu)] 50 mcg PO DAILY Cyanocobalamin (Vitamin B-12) [Vitamin B-12] 1,000 mcg PO DAILY metFORMIN HCL ER [Glucophage XR] 500 mg PO DAILY Metoprolol Tartrate [Lopressor] 50 mg PO HS Empagliflozin [Jardiance] 25 mg PO DAILY Discharge Medication List Atorvastatin [Lipitor] 80 mg PO HS 10/15/14 [History] Omeprazole 40 mg PO HS 10/15/14 [History] Aspirin [Adult Low Dose Aspirin EC] 81 mg PO DAILY 11/06/17 [History] lisinopriL [Zestril] 5 mg PO DAILY 11/06/17 [History] Metoprolol Tartrate [Lopressor] 50 mg PO HS 02/03/22 [History] Cholecalciferol (Vitamin D3) [Vitamin D3 (50 Mcg = 2000 Iu)] 50 mcg PO DAILY 06/10/24 [History] Cyanocobalamin (Vitamin B-12) [Vitamin B-12] 1,000 mcg PO DAILY 06/10/24 [History] Empagliflozin [Jardiance] 25 mg PO DAILY 06/10/24 [History] metFORMIN HCL ER [Glucophage XR] 500 mg PO DAILY 06/10/24 [History] Follow up Appointment(s)/Referral(s): Osmany Guardado PAC [PHYSICIAN CLAIMS ADJUDICATOR] - 08/13/24 10:00 am [facility] [NON-STAFF] - As Needed (Call [facility] to arrange delivery of the Continuous Passive Motion (CPM) machine. ) [facility], [NON-STAFF] - 1-2 Days ([facility] will call you to schedule your in home nursing and physical therapy visits. ) Patient Instructions/Handouts: Knee Replacement (GEN) Activity/Diet/Wound Care/Special Instructions: Orthopedic Discharge Instructions: 1. Wound care and infection precautions, keep incision dry and covered while showering, no lotions, creams, moisturizers. No soaking, pools, hot tubs. Do not scrub over incision. 2. Weight-bear as tolerated with walker / cane until follow-up. 3. Ice and elevate when necessary. Do not exceed 20 minutes per hour with ice pack. 4. Utilize compression sleeve until seen at first follow up appointment. 5. Pain meds and anticoagulants per prescription. 6. Pain medication has potential to cause constipation. Increase oral fluid and fiber intake. Contact primary care provider if you have not had a bowel movement within 48 hours after discharge. 7. No anti-inflammatory medication until discussed at first post operative visit, this including Motrin, Aleve, Mobic, Diclofenac. 8. Follow up in office at 2 weeks postop with Pa Rodriguez PA-C / Osmany Guardado PA-C 9. Follow up with your primary care doctor 7-10 days after discharge. 10. Contact [facility] with any questions, . Keep incision clean, dry, intact. While showering, cover fusion tape with Saran wrap. Keep fusion tape on until follow-up appointment office in 2 weeks
[2024-07-30 13:08] VITALS: BP 136/62; PULSE 75; TEMP 98.3
--- NOTE | 2024-07-30 13:16 | P.PN ---
Subjective Progress Note Date: 07/30/24 Principal diagnosis: Right knee osteoarthritis Patient was seen at bedside this morning sitting up in chair with legs elevated currently icing the right knee. Patient states he did develop therapy and walk on the [place] and up-and-down stairs. He says he does need a walker for home. Patient says he has urinated since surgery yesterday without issue. Patient says he has not had bowel yet, however, patient states he has been passing gas. Patient denies any other issues at this time. Objective - Vital Signs Vital signs: Vital Signs Temp 97.7 F 07/30/24 07:53 Pulse 74 07/30/24 07:53 Resp 17 07/30/24 01:49 BP 91/44 07/30/24 07:53 Pulse Ox 95 07/30/24 07:53 FiO2 Intake & Output 07/29/24 07/30/24 07/30/24 18:59 06:59 18:59 Intake Total 2550 410 120 Output Total 50 800 Balance 2500 -390 120 Weight 83.1 kg Intake: IV 2550 Intake, IV Titration 50 Amount ceFAZolin 2 gm In Sodium 50 Chloride 0.9% 50 ml @ 100 mls/hr IV[facility] Q[facility] Rx# :[id number] Oral 360 120 Output: Urine 800 Estimated Blood Loss 50 - Exam Right knee: Incision is clean, dry, and intact. The exofin fusion tape is in good condition. There is minimal soft tissue swelling and ecchymosis surrounding the medial and lateral aspects of the incision. Calf is soft, no tenderness with palpation. Plantar flexion, dorsiflexion, EHL, FHL are intact. Sensory exam to light touch throughout the extremity is intact, dorsal pedis pulses 2+. - Labs CBC & Chem 7: 07/30/24 04:14 Labs: Abnormal Lab Results - Last 24 Hours (Table) 07/29/24 07/29/24 07/30/24 Range/Units 16:56 20:57 04:14 RBC 3.21 L (4.40-5.60) X 10*6/uL Hgb 10.1 L (13.0-17.0) g/dL Hct 30.9 L (39.6-50.0) % Immature Gran # 0.05 H (0.00-0.04) X 10*3/uL Eosinophils # 0 L (0.04-0.35) X 10*3/uL POC Glucose (mg/dL) 136 H 187 H (70-110) mg/dL 07/30/24 07/30/24 Range/Units 06:56 11:24 RBC (4.40-5.60) X 10*6/uL Hgb (13.0-17.0) g/dL Hct (39.6-50.0) % Immature Gran # (0.00-0.04) X 10*3/uL Eosinophils # (0.04-0.35) X 10*3/uL POC Glucose (mg/dL) 113 H 227 H (70-110) mg/dL Assessment and Plan Assessment: 1. Right knee osteoarthritis - Postop day 1 status post right total knee arthroplasty Plan: 1. Right knee osteoarthritis- surgery performed yesterday, Sunday, 4right total knee arthroplasty. Patient stable at bedside this morning. Patient did do well with PT/OT. Prescription for walker signed. Discharge home today with health services. 2. Appreciate medical management 3. Pain management - norco; tylenol; gabapentin 4. DVT prophylaxis - scds, benjy newby; Nikaquis 5. GI prophylaxis - senna 6. PT/OT -weightbearing as tolerated with walker 7. Encourage incentive spirometer use Time with Patient: Less than 30
--- NOTE | 2024-07-30 14:35 | P.PN ---
Subjective Progress Note Date: 07/30/24 Hospital course: Patient is a 79-year-old male with PMH of type 2 diabetes, hypertension, hyperlipidemia, CAD status post CABG, left TKA is admitted to the hospital for right total knee replacement procedure. Patient underwent the procedure on 07/29/2024. Internal medicine service was consulted for medical management. This is a postop day 1. Surgery was uncomplicated. Patient complaining of mild pain as expected postsurgery. Otherwise patient is stable and denies any shortness of breath, chest pain, abdominal discomfort, diarrhea, constipation and numbness, tingling or weakness in upper or lower extremities. 07/30/2024: Patient was seen and examined at the bedside. No acute events overnight. Patient is ambulating with assist. Physical examination: Vital signs reviewed General: non toxic, no distress, appears at stated age, normal weight Cardiovascular: S1S2 reg, no murmur, positive dorsalis pedis pulse bilateral, no edema Lungs: CTA bilateral, no rhonchi, no rales, no accessory muscle use Abdominal: soft, nontender to palpation, no guarding Ext: muscle strength 5 out of 5 in all 4 extremities grossly, no gross muscle atrophy, no contractures, right knee covered in dressing clean, dry, intact Psych: Alert, oriented, appropriate affect Pertinent Labs reviewed today: Hb 10.1, MCV 96.3 Imaging reviewed today: None Assessment/Plan: Patient is a 79-year-old male with PMH of type 2 diabetes, hypertension, hyperlipidemia, CAD status post CABG, left TKA is admitted to the hospital for right total knee replacement procedure. Patient underwent the procedure on 07/29/2024. Internal medicine service was consulted for medical management. This is a postop day 1. Surgery was uncomplicated. Patient complaining of mild pain as expected postsurgery. Otherwise patient is stable. Medically optimized to be discharged from medical stand point. Patient is advised to follow up with PCP for post hospital discharge and follow up on chronic medical conditions. #Right total knee arthroplasty Postop day 1 Patient stable Management including pain control as per orthopedic # Acute blood loss anemia, anticipated outcome of surgery Hb 10.1, MCV 96.3 -No active bleeding #Chronic conditions Hypertension, diabetes type 2, hyperlipidemia, CAD -Continue lisinopril 5 mg daily, metoprolol 50 mg nightly, aspirin 81 mg daily, atorvastatin 80 mg nightly, sliding scale insulin, monitor for hypoglycemia Patient is advised to follow up with PCP Patient is medically optimized to be discharged Thank you for allowing us to participate in the care of this pleasant patient. Do not hesitate to contact us with questions. Someone can be reached from the [facility] hospitalist group all hours of the day at [phone] or via perfect serve. I have seen and evaluated the patient today. Discussed with the resident and agree with the residents finding and plan as documented in the resident's note. Changes highlighted in blue font. Objective - Vital Signs Vital signs: Vital Signs Temp 98.3 F 07/30/24 13:07 Pulse 75 07/30/24 13:07 Resp 17 07/30/24 01:49 BP 136/62 07/30/24 13:07 Pulse Ox 97 07/30/24 13:07 FiO2 Intake & Output 07/29/24 07/30/24 07/30/24 18:59 06:59 18:59 Intake Total 2550 410 240 Output Total 50 800 Balance 2500 -390 240 Weight 83.1 kg Intake: IV 2550 Intake, IV Titration 50 Amount ceFAZolin 2 gm In Sodium 50 Chloride 0.9% 50 ml @ 100 mls/hr IVPB Q8HR [facility] Rx# :[id number] Oral 360 240 Output: Urine 800 Estimated Blood Loss 50 - Labs CBC & Chem 7: 07/30/24 04:14 Labs: Abnormal Lab Results - Last 24 Hours (Table) 07/29/24 07/29/24 07/30/24 Range/Units 16:56 20:57 04:14 RBC 3.21 L (4.40-5.60) X 10*6/uL Hgb 10.1 L (13.0-17.0) g/dL Hct 30.9 L (39.6-50.0) % Immature Gran # 0.05 H (0.00-0.04) X 10*3/uL Eosinophils # 0 L (0.04-0.35) X 10*3/uL POC Glucose (mg/dL) 136 H 187 H (70-110) mg/dL 07/30/24 07/30/24 Range/Units 06:56 11:24 RBC (4.40-5.60) X 10*6/uL Hgb (13.0-17.0) g/dL Hct (39.6-50.0) % Immature Gran # (0.00-0.04) X 10*3/uL Eosinophils # (0.04-0.35) X 10*3/uL POC Glucose (mg/dL) 113 H 227 H (70-110) mg/dL
[2024-07-30] MEDS ORDERED: RIVAROXABAN 20 MG TAB PO SCH (17:30)
== END 2024-07-30 14:50 | disposition home health service (06) ==
LOC: OR 05:43 → 4SSUR 10:14 → OR 07-30 14:50
PROVIDERS: ATTEND Orthopaedic Surgery
CPT/HCPCS: 64448; 64999; 85025